=== PATIENT | female | born 1940 | race Caucasian/White ===

== ENCOUNTER 2022-06-21 21:32 | Emergency (ER) | payer MEDICARE ==
[2022-06-21 21:59] LABS: HEMOGLOBIN 12.3 gm/dl (12.3-15.3); RED BLOOD COUNT 4.29 M/UL (4.00-5.10); WHITE BLOOD COUNT 11.5 K/UL (4.5-11.0)
[2022-06-21 22:30] LABS: BUN/CREATININE RATIO 67 (0-10)
[2022-06-22] MEDS ORDERED: PROTONIX 40 MG40 M1 PO (00:33)
[2022-06-22] MEDS ORDERED: OMNICEF 300 MG300 MG PO (00:33)
[2022-06-22] MEDS ORDERED: ZOFRAN ODT 4 MG4 MG PO (00:33)
== END 2022-06-22 00:48 | disposition home or self-care (01) ==
LOC: ER1 21:32
PROVIDERS: Family Medicine
DX: N39.0 Urinary tract infection, site not specified (principal); N28.9 Disorder of kidney and ureter, unspecified; R55 Syncope and collapse; F17.200 Nicotine dependence, unspecified, uncomplicated
CPT/HCPCS: 71045; 80053; 81001; 82550; 82553; 83605; 83690; 83735; 84439; 84443; 84484; 85025; 85610; 87086; 93005; 96374; 96375; 99284; C9113; J0696; J2405